=== PATIENT | male | born 1955 | race Caucasian/White ===

== ENCOUNTER 2016-04-20 12:52 | Inpatient (IN) ==
[2016-04-20] MEDS ORDERED: METOPROLOL TARTRATE 25 MG TABLET PO STA (13:15)
--- NOTE | 2016-04-20 13:21 | Emergency Department Note ---
Arrival - Arrival Chief Complaint: Neuro Stated Complaint: numbness, tingling to left face, arm, leg ED Nursing Triage Note: Patient arrived via ems with c/o of tingling to left arm , left leg, and left side of face. Patient symptoms started at 1130 today while sitting in chair. Patient reports this has never happened. Denies any chest pain or shortness of breath. Denies headache. PMH: htn, elevated cholesterol. Mode of Arrival: Stretcher Limitations: No Limitations Source: Patient Time Seen by Provider: 04/20/16 13:15 - History of Present Illness HPI Narrative: This 7-year-old white male presents with a history of approximately 2 hours ago onset of left facial numbness as well as left upper and left lower extremity numbness not associated with any motor weakness. The patient denies visual changes, headache, slurring of speech, nausea, or vomiting. Of note, he just started antihypertensive medication a week ago and continues with elevated blood pressure on presentation today. He denies any chest pain, palpitations, or shortness of breath associated with this. He does not have a prior history of any atherosclerotic related disease. Currently he appears in no acute distress. Onset (ago): hour(s) (this patient presents 2 hours post onset of symptoms) Consistency: constant Severity: mild Review of System - Review of System 12 point system: reviewed and no additional remarkable complaints except as stated - Review of System Constitutional: Present: as per HPI Respiratory: Present: as per HPI Cardiovascular: Present: as per HPI Gastrointestinal: Present: as per HPI Neurological: Present: as per HPI Medical,Surgical,& Family Hx - Medical History Cardio: History of: Hypertension Endocrine: History of: Dyslipidemia - Social History Smoking Status: Current every day smoker Frequency of Alcohol Use: None Type of Drug Use: None Exam Physical Examination: GENERAL: Well developed, well nourished white male in no acute distress. HEENT: Normocephalic. No trauma. Moist mucous membranes. EOMI. PERRLA. ENT clear NECK: Supple. No adenopathy. CARDIAC: Regular. No murmurs. Heart rate 90 CHEST: Clear to auscultation. No respiratory distress. O2 sat 94% ABDOMEN: Soft. Nontender. Active bowel sounds. EXTREMITIES: No trauma. Normal ROM. No pedal edema. SKIN: No diaphoresis. No rash. NEURO: Alert. Oriented 3. Motor, vibratory intact somewhat questionable decrement in sensation left extremities No focal deficits. Vital Signs: Vital Signs Temperature 98.0 F 04/20/16 12:53 Pulse Rate 95 H 04/20/16 13:26 Respiratory Rate 23 04/20/16 13:26 Blood Pressure 186/116 04/20/16 13:26 O2 Sat by Pulse Oximetry 94 L 04/20/16 13:26 Course - Reevaluation(s) Reevaluation #1: Discussed with patient the need for further evaluation given his persistent numbness and history of hypertension and hypercholesterolemia - Consultations Consultation #1: Discussed with hospitalist service who will admit for further evaluation and treatment. Results - Labs CBC & BMP: 04/20/16 13:34 04/20/16 13:34 Labs: I have reviewed the laboratory and noted the normal results. - Impressions EKG: Sinus rhythm with normal ME interval and QRS duration. Normal ST segments. Normal EKG. - Diagnostic Findings Procedure: Chest x-ray: image reviewed by me, report reviewed by me (evidence of COPD otherwise no significant findings), CT: image reviewed by me, report reviewed by me (head: No acute injury noted) Disposition Clinical Impression: TIA, hypertension, hyperlipidemia Case discussed with: patient, patient's family Disposition: Still a Patient Condition: Stable Time of Disposition: 14:31
[2016-04-20] MEDS ORDERED: METOPROLOL TARTRATE 25 MG TABLET ONE (13:30)
--- NOTE | 2016-04-20 13:39 | EKG Report ---
Stationary ECG Study [facility] ER Test Date: 04/20/2016 1:38:10 PM Pat Name: DARLENE MAC Department: Room: Gender: M Receptionist: : 1955 Requested by: Lee Csataneda Order Number: [id number] Reading MD: VERENICE BUSTAMANTE Intervals [place] Rate: 86 P: 64 ND: 186 QRS: 12 QRSD: 100 T: 76 QT: 362 QTc: 405 Interpretive Statements SINUS RHYTHM Electronically Signed On 04-22-16 20:01:25 SUPERVISOR CD ARE[employer] by VERENICE BUSTAMANTE [email or web address]
[2016-04-20 13:41] LABS: Basophils # 0.1 10*3/uL (0.0-0.2); Basophils % 0.6 % (0.0-0.8); Eosinophils # 0.1 10*3/uL (0.0-0.87); Eosinophils % 0.9 % (0.00-10.9); Hematocrit 46.1 VOL% (42.0-52.0); Hemoglobin 15.6 GM/DL (14.0-18.0); Immature Granulocytes % 0.3 %; Immature Granulocytes Absolute 0.03 #; Lymphocytes # 1.8 10*3/uL (1.4-4.0); Lymphocytes % 18.1 % (21.2-54.2); Mean Corpuscular HGB Conc 33.8 GM/DL (32-36); Mean Corpuscular Hemoglobin 30 PG (27-34); Mean Corpuscular Volume 88.3 FL (87-102); Monocytes # 1.4 10*3/uL (0.11-0.8); Monocytes % 13.9 % (1.7-12.7); Neutrophils # 6.5 10*3/uL (1.4-7.4); Neutrophils % 66.2 % (38.7-73.9); Platelet Count 363 T/CUMM (130-400); Red Blood Count 5.22 MC/CUMM (3.8-5.5); Red Cell Distribution Width 12.4 % (9.3-17.3); White Blood Count 9.8 T/CUMM (4-12)
[2016-04-20 13:45] LABS: Apearance,Urine CLEAR (Clear); Bilirubin,Urine Negative (Negative); Blood, Urine Negative (Negative); Glucose,Urine (UA) Negative (Negative); Ketones,Urine Negative (Negative); Mucus,Urine Occasional /LPF (Occasional); Nitrite,Urine Negative (Negative); Protein,Urine Negative; Urine Color Straw (Yellow); Urine Specific Gravity 1.003 (1.001-1.035); Urine Urobilinogen < 2.0 EU/DL (0.2-1.0); WBC,Urine <1 /HPF (0-6)
--- NOTE | 2016-04-20 13:51 | CT Report ---
CT brain Indication: Mental status changes Comparison: None available Technique: Axial CT imaging of the brain is performed without contrast with 3 mm increments. Findings: No evidence of hemorrhage, mass mass effect midline shift or acute infarct seen. The brain parenchyma attenuation and differentiation appears within normal limits. The ventricles and cisterns are normal in caliber. No cranial or skull base abnormality is identified. Impression: No evidence of abnormality demonstrated. PROCEDURE INTERPRETED AT [facility] DEPARTMENT OF RADIOLOGY Final Report Signed by: Dr. Maximilinao Sanchez
[2016-04-20 13:52] LABS: Barbiturates Screen,Urine Negative (Negative); Benzodiazepines Screen,Urine Negative (Negative); Cannabinoid Screen,Urine Negative (Negative); Opiate Screen,Urine Positive (Negative); Phencyclidine Screen,Urine Negative (Negative)
--- NOTE | 2016-04-20 13:58 | XRay Report ---
XR chest 2V Indication: Altered mental status Comparison: 22 August 2013 Findings: The heart and mediastinum are normal in size and configuration. The pulmonary vascularity is normal in caliber. Lung volumes are increased with prominent bronchial markings. No lung infiltrates, effusions, pneumothorax or other abnormality is demonstrated. Impression: Chronic lung changes. No acute process or significant change. PROCEDURE INTERPRETED AT [facility] [place] DEPARTMENT OF RADIOLOGY Final Report Signed by: Dr. Maximiliano Sanchez
[2016-04-20 14:01] LABS: PT Patient Result 10.7 SECS; Partial Thromboplastin Time 36.1 SECS (0-40)
[2016-04-20 14:07] LABS: Alanine Aminotransferase 19 U/L (16-61); Albumin 4.1 G/DL (3.4-5.0); Alkaline Phosphatase 114 U/L (45-117); Aspartate Amino Transferase 9 U/L (0-37); Blood Urea Nitrogen 14 MG/DL (7-18); Calcium 9.2 MG/DL (8.5-10.1); Free T4 (Free Thyroxine) 1.21 NG/DL (0.76-1.46); Glucose 99 MG/DL (74-106); Magnesium 2.5 MG/DL (1.8-2.4); Osmolality,Calculated 277.5 MOS/KG (273-304); Potassium 4.4 MMOL/L (3.5-5.1); Sodium 139 MMOL/L (136-145); Total Protein 7.4 G/DL (6.4-8.3); Troponin I Only < 0.015 NG/ML (0.00-0.045)
[2016-04-20] MEDS ORDERED: LABETALOL 20 MG/4 ML SYRINGE IV PRN (15:15)
--- NOTE | 2016-04-20 16:11 | Ultrasound Report ---
US carotid duplex BI Indication: Left-sided numbness. CAROTID ULTRASOUND Comparison: None. Findings: Grayscale, color Doppler and pulsed Doppler interrogation of the carotid and vertebral arteries performed. Severity of stenosis based on flow velocity measurements using NASCET criteria. Distal right ICA diameter: 5.9 mm Distal left ICA diameter: 5.3 mm Peak systolic flow velocities in centimeters per second are as follows: Right: CCA: 64 cm/s Proximal ICA: 52 Distal ICA: 81 ICA/CCA ratio: 1.3 Left: CCA: 76 cm/s Proximal ICA: 53 Distal ICA: 101 ICA/CCA ratio: 1.3 External carotid arteries: Both are patent with antegrade flow. Vertebral arteries: Both are patent with antegrade flow. Grayscale and color Doppler images: Very little focal plaque deposition identified, with normal color Doppler flow present. Pulse Doppler waveform interrogation: No significant spectral broadening. Impression: No hemodynamically significant stenosis of either ICA origin. PROCEDURE INTERPRETED AT [facility] DEPARTMENT OF RADIOLOGY Final Report Signed by: Alonso Olivas M.D.
--- NOTE | 2016-04-20 17:50 | Hospitalist History & Physical ---
Assessment and Plan (1) Acute CVA (cerebrovascular accident) Status: Acute Assessment and plan: 1)possible stroke- head CT looks ok. echo, carotids, MRI pending. Neuro consult pending. Symptoms resolving. PT and OT to see. Monitor BP. On aspirin a day- increase to 325/day, and may need to add plavix pending MRI results. 2)BPH- flomax 3)GERD- omeprazole 4)depression- welbutrinXL 5)restless leg syndrome- oxycodone, ambien. 6)COPD- on symbicort. Current Visit: Yes (2) HTN (hypertension) Status: Acute Current Visit: Yes (3) BPH (benign prostatic hyperplasia) Status: Acute Current Visit: Yes (4) CFS (chronic fatigue syndrome) Status: Acute Current Visit: Yes (5) Restless leg Status: Acute Current Visit: Yes (6) GERD (gastroesophageal reflux disease) Status: Acute Current Visit: Yes History of Present Illness Chief complaint: numb left side History of present illness: Mr. Edwards is a 61 year old male who started to have left mouth and arm numbness at 11:30 that spread to his leg. His leg has resolved, his arm is better but his mouth is still numb- he has bitten that side of his mouth several times chewing gum. He has never had anything like this happen to him before. He has not had loss of strength or coordination in these areas, though they feel like they have been "put to sleep with lidocaine". No recent illness, no fevers, N/V/D, no dysuria. no headache, no seizures. No pain. He is a retired RN. Home Medications Medication Instructions Recorded Confirmed Type Aspirin EC Tab 81 mg PO DAILY 04/20/16 04/20/16 History Atorvastatin [Lipitor] 20 mg PO DAILY 04/20/16 04/20/16 History Lisinopril 10 mg PO DAILY 04/20/16 04/20/16 History Omeprazole [Prilosec] 20 mg PO DAILY 04/20/16 04/20/16 History Oxycodone HCl 30 mg PO QID 04/20/16 04/20/16 History Tamsulosin [Flomax] 0.4 mg PO BID 04/20/16 04/20/16 History Zolpidem Tartrate [Ambien] 10 mg PO QPM 04/20/16 04/20/16 History buPROPion XL [Wellbutrin Xl] 300 mg PO DAILY 04/20/16 04/20/16 History Allergies Allergy/AdvReac Type Severity Reaction Status Date / Time levofloxacin [From Levaquin] Allergy Severe Chest Pain Verified 04/20/16 17:40 Medical,Surgical,& Family Hx - Medical History Cardio: History of: Hypertension Endocrine: History of: Dyslipidemia Respiratory: History of: COPD Genitourinary: History of: Prostate Problems Gastrointestinal: History of: GERD Other: History of: Miscellaneous Medical Problems (restless leg syndrome, chronic fatigue syndrome) - Surgical History Abdominal Surgeries: Surgical HX of: Appendectomy - Family History Family History: Reports;: Family Cancer (maternal and paternal frandfathers), Family Hypertension (dad) - Social History Smoking Status: Current every day smoker Have you smoked in the last 12 months: Yes (44 pack years, now 1/2ppd) Frequency of Alcohol Use: None Type of Drug Use: None Marital Status: Lives With:: Spouse Functional capacity: independent ambulation 12 point system: reviewed and no additional remarkable complaints except as stated Exam - Constitutional General appearance: normal weight, no acute distress - Head Head exam: Present: normocephalic, atraumatic - Eye Eye exam: Present: EOMI. Absent: conjunctival injection, periorbital swelling, scleral icterus Pupils: Present: YOBANI - ENT ENT exam: Present: normal oropharynx - Neck Neck exam: Present: normal inspection. Absent: lymphadenopathy - Respiratory Respiratory exam: Present: clear to auscultation bilaterally - Cardiovascular Cardiovascular exam: Present: regular rate and rhythm - GI/Abdominal GI/Abdominal exam: Present: normal bowel sounds, soft. Absent: tenderness - Extremities Exam Extremities exam: Absent: edema - Back Exam Back exam: Present: normal inspection - Neurological Exam Neurological exam: Present: alert, oriented X3, CN II-XII intact, motor sensory deficit (numb to touch in left arm and face. leg much less so. reflexes increased on left. ) - Psychiatric Psychiatric exam: Present: normal affect, normal mood - Skin Skin exam: Present: warm, dry Results - Labs CBC & BMP: 04/20/16 13:34 04/20/16 13:34 Lab Results: I have reviewed the past 24 hour labs Quality Measures - Stroke Onset of Symptoms Date: 04/20/16 Onset of Symptoms Time: 11:30 Symptom Onset Unknown: No
[2016-04-20] MEDS ORDERED: ENOXAPARIN 40 MG/0.4 ML SYRINGE SUBCUT SCH (18:00)
[2016-04-20 18:15] LABS: Cholesterol 174 MG/DL (50-200); HDL Cholesterol 68 MG/DL (40-60); Risk Ratio 2.56; Triglycerides 71 MG/DL (2-150); Troponin I Only < 0.015 NG/ML (0.00-0.045); VLDL CHOLESTEROL 14.2 MG/DL
[2016-04-20] MEDS ORDERED: ZALEPLON 5 MG CAPSULE PO SCH (19:00)
[2016-04-20] MEDS: SODIUM CHLORIDE 0.9% 1,000 ML IV SCH (19:06)
[2016-04-20] MEDS: oxyCODONE IR 5 MG TABLET PO SCH (20:13)
[2016-04-20] MEDS: TAMSULOSIN 0.4 MG CAPSULE PO SCH (20:13)
[2016-04-20] MEDS ORDERED: ROSUVASTATIN 20 MG TABLET PO SCH (21:00)
[2016-04-21 07:48] LABS: Basophils # 0.1 10*3/uL (0.0-0.2); Basophils % 0.5 % (0.0-0.8); Eosinophils # 0.1 10*3/uL (0.0-0.87); Eosinophils % 1.2 % (0.00-10.9); Hematocrit 42.1 VOL% (42.0-52.0); Hemoglobin 14.2 GM/DL (14.0-18.0); Immature Granulocytes % 0.6 %; Immature Granulocytes Absolute 0.06 #; Lymphocytes # 1.8 10*3/uL (1.4-4.0); Lymphocytes % 18.4 % (21.2-54.2); Mean Corpuscular HGB Conc 33.7 GM/DL (32-36); Mean Corpuscular Hemoglobin 30 PG (27-34); Mean Corpuscular Volume 89.6 FL (87-102); Mean Platelet Volume 9.2 FL (9.6-12.0); Monocytes # 1.2 10*3/uL (0.11-0.8); Monocytes % 12.3 % (1.7-12.7); Neutrophils # 6.6 10*3/uL (1.4-7.4); Platelet Count 355 T/CUMM (130-400); Red Cell Distribution Width 12.6 % (9.3-17.3); White Blood Count 9.8 T/CUMM (4-12)
--- NOTE | 2016-04-21 07:50 | ECHO Report ---
Patrice Edwards Exam Date: 04/20/2016 15:53 Referring Physician: Technologist: Niki Voss RDCS Age: 61 Ht (in): Wt (lb): Gender: M Exam Location: [facility] Echo BP: / HR: Rhythm: Sinus Technical Quality: IMPRESSIONS Normal left ventricular cavity size. Mild concentric left ventricular hypertrophy. Left ventricular ejection fraction is estimated at 50 %, borderline global hypokinesis. Grade 1 diastolic dysfunction. Mildly dilated right-sided heart chambers, with mild pulmonary hypertension. Mildly dilated left atrium. MEASUREMENTS (Male / Female) Normal Values FINDINGS Left Ventricle Normal left ventricular cavity size. Mild concentric left ventricular hypertrophy. Left ventricular ejection fraction is estimated at 50 %, borderline global hypokinesis. Grade 1 diastolic dysfunction. Right Ventricle The right ventricle is mildly dilated, with normal systolic function. Right Atrium The right atrium is mildly enlarged. Left Atrium Mildlly dilated left atrium. Mitral Valve Structurally normal mitral valve, with trace insufficiency. Aortic Valve Morphologically normal aortic valve without significant sclerosis or stenosis. There is no aortic regurgitation. Tricuspid Valve Morphologically normal tricuspid valve. Mild tricuspid valve regurgitation. Tricuspid regurgitation velocities suggest a PAP of 50 mmHg. Pulmonic Valve Morphologically normal pulmonic valve without significant stenosis. There is trace pulmonic regurgitation. Pericardium Normal pericardium without effusion. Aorta Normal ascending aorta dimension. Singh Schmitt (Electronically Signed) Final Date: 21 April 2016 07:49
[2016-04-21 08:19] LABS: Calcium 9.1 MG/DL (8.5-10.1); Osmolality,Calculated 280.3 MOS/KG (273-304); Potassium 4.4 MMOL/L (3.5-5.1)
[2016-04-21] MEDS ORDERED: LISINOPRIL 10 MG TABLET PO SCH (09:00)
[2016-04-21] MEDS ORDERED: ASPIRIN EC 81 MG TABLET PO SCH (09:00)
[2016-04-21] MEDS ORDERED: ASPIRIN EC 325 MG TABLET PO SCH (09:00)
[2016-04-21] MEDS ORDERED: ATORVASTATIN 20 MG TABLET PO SCH (09:00)
[2016-04-21] MEDS ORDERED: PANTOPRAZOLE 40 MG TABLET PO SCH (09:00)
[2016-04-21] MEDS: TAMSULOSIN 0.4 MG CAPSULE PO SCH (09:05)
[2016-04-21] MEDS: oxyCODONE IR 5 MG TABLET PO SCH ×2 (09:07→13:22)
--- NOTE | 2016-04-21 10:47 | Magnetic Resonance Report ---
MRI of the brain without contrast. Indication: Left-sided weakness. Axial diffusion, axial ADC, sagittal T1, axial T2, axial FLAIR, axial gradient echo, axial T1, coronal T2 no prior studies. The appearance of the craniovertebral junction is within normal limits. The pituitary gland is normal in size. The ventricles and sulci are normally prominent for the patient's age. There is no mass effect, midline shift, or area of hemorrhage. No cortical infarcts are seen at this time. There is a subcentimeter focus of abnormal increased T2, FLAIR, and diffusion signal within the right thalamus. Within the white matter of both cerebral hemispheres, there are scattered foci of increased T2 and FLAIR signal. The venous sinuses are patent. There is mild mucosal thickening within the ethmoid sinuses. Impression: 1. Small focus of abnormal signal consistent with an area of acute ischemia within the right thalamus. 2. Small scattered nonspecific foci in the white matter of both cerebral hemispheres which may be related to chronic microvascular ischemia, migraine headache syndrome, vasculitis, demyelinating processes, or post viral or post inflammatory entities. PROCEDURE INTERPRETED AT [facility] DEPARTMENT OF RADIOLOGY Final Report Signed by: Dr. Kelley Lee
[2016-04-21] MEDS: SODIUM CHLORIDE 0.9% 1,000 ML IV SCH (10:58)
[2016-04-21] MEDS ORDERED: CLOPIDOGREL 75 MG TABLET PO SCH (13:00)
--- NOTE | 2016-04-21 14:09 | Neurology Consult Note ---
History of Present Illness History of present illness: Mr. Edwards is a 61 year old right-handed white gentleman who started to have left mouth and arm numbness at 11:30 am that spread to his leg. His leg has resolved, his arm is better but his mouth is still numb- he has bitten that side of his mouth several times chewing gum. He has never had anything like this happen to him before. He has not had loss of strength or coordination in these areas, though they feel like they have been "put to sleep with lidocaine" . No recent illness, no fevers, N/V/D, no dysuria. no headache, no seizures. No pain. MRI of the brain revealed a small right thalamic acute infarct. Carotid Dopplers and echo is negative. Lipid profile is unremarkable. Patient does smokes a pack per day. And was also taking aspirin a day. Home Medications Medication Instructions Recorded Confirmed Type Aspirin EC Tab 81 mg PO DAILY 04/20/16 04/20/16 History Atorvastatin [Lipitor] 20 mg PO DAILY 04/20/16 04/20/16 History Lisinopril 10 mg PO DAILY 04/20/16 04/20/16 History Omeprazole [Prilosec] 20 mg PO DAILY 04/20/16 04/20/16 History Oxycodone HCl 30 mg PO QID PRN 04/20/16 04/20/16 History Tamsulosin [Flomax] 0.4 mg PO BID 04/20/16 04/20/16 History Zolpidem Tartrate [Ambien] 10 mg PO QPM 04/20/16 04/20/16 History buPROPion XL [Wellbutrin Xl] 300 mg PO DAILY 04/20/16 04/20/16 History Allergies Allergy/AdvReac Type Severity Reaction Status Date / Time levofloxacin [From Levaquin] Allergy Severe Chest Pain Verified 04/20/16 17:40 12 point system: reviewed and no additional remarkable complaints except as stated Medical,Surgical,& Family Hx - Medical History Cardio: History of: Hypertension Endocrine: History of: Dyslipidemia Respiratory: History of: COPD Genitourinary: History of: Prostate Problems Gastrointestinal: History of: GERD Other: History of: Miscellaneous Medical Problems (restless leg syndrome, chronic fatigue syndrome) - Surgical History Abdominal Surgeries: Surgical HX of: Appendectomy - Family History Family History: Reports;: Family Cancer (maternal and paternal frandfathers), Family Hypertension (dad) - Social History Smoking Status: Current every day smoker Frequency of Alcohol Use: None Type of Drug Use: None Exam - Constitutional Vitals: Period Temp Pulse Resp BP Sys/Cruz Pulse Ox Last 24 Hr 96.4 F-98.3 F 63-72 16-24 128-160/75-112 93-96 Exam: GENERAL: Patient is in no acute distress. NECK: Neck is supple. There is no JVD. No carotid bruits present. No thyroid masses. CVS: First and second heart sounds are normal. There is no S3 present. Regular rate and rhythm. RESPIRATORY: Lungs are clear to auscultation without any rales or rhonchi. ABDOMEN: Soft and non-tender. Bowel sounds are present. There is no hepatosplenomegaly. EXT: There is no palpable edema. Peripheral pulses are present. Skin: No rashes Central Nervous system: General: Alert, awake and Oriented x 3 Speech: Fluent Comprehension: Intact and normal Facial expressions: Normal Cranial Nerves: CN1/Olfactory: Normal CN II/ Optic: Normal, Visual Carlos unreliable CN III, and : YOBANI & EOMI CN V: Normal & intact CN VII: face is symmetric CNVIII: Normal CN XI/X/XI/XII: Intact and Normal Motor: Bulk and Tone is normal. Strength in the right 5/5 Strength in the left 5/5 Sensory: Decreased for all the modalities of PP, LT and temp sense in the left face Reflexes: 1+ and symmetrical Cerebellar function: Normal finger to nose and heel to padgett testing. Gait: Normal heel to heel and toe to toe and tandem walk. Results - Labs CBC & BMP: 04/21/16 07:02 04/21/16 07:02 Assessment and Plan (1) Acute CVA (cerebrovascular accident) Status: Acute Assessment and plan: Acute right thalamic CVA. Stop aspirin Agree with Plavix Counseled him regarding cessation of smoking Change lisinopril to 20 mg daily Okay to go home from neuro standpoint Follow-up in 4 weeks Current Visit: Yes Specialty Discharge - Follow Up or Referrals Follow up with: Epifanio Lizarraga MD [Physician] - 1 Month
[2016-04-21] MEDS ORDERED: LISINOPRIL 20 MG TABLET PO SCH (14:12)
--- NOTE | 2016-04-21 14:55 | Discharge Summary ---
Hospital Course - Hospital Course Hospital Course: Mr Edwards presented with left side face, arm and leg numbness. He has acute right thalamic stroke on MRI. He was already on aspirin and Plavix was added. He was counselled to stop smoking. His carotids had less than 50% stenosis and his echo had normal LV function. He was seen by Dr Lizarraga also. His numbness has improved except for some residual in his face at this point. He will be discharged on increased lisinopril, plavix, otherwise meds the same. He is already on an effective statin. Follow up with PCP in [address] Lizarraga in 1 month. - Time spent with patient Time with patient DS: Greater than 30 minutes (exam, medicine reconciliation, documentation, discharge planning) Diagnosis - Discharge Diagnosis (1) Acute CVA (cerebrovascular accident) Status: Acute (2) HTN (hypertension) Status: Chronic (3) BPH (benign prostatic hyperplasia) Status: Chronic (4) CFS (chronic fatigue syndrome) Status: Chronic (5) Restless leg Status: Chronic (6) GERD (gastroesophageal reflux disease) Status: Chronic (7) Hypercholesteremia Status: Acute (8) Smoker Status: Acute Specialty Discharge - Follow Up or Referrals Follow up with: Epifanio Lizarraga MD [Physician] - 1 Month your, PCP [Other] (1 week) Discharge Plan - Discharge Data Disposition: Disch To Home/Self Care Condition at Discharge: Stable Discharge Diet: heart healthy, low fat, low cholesterol Activity: resume usual activities as tolerated - Discharge Medications New Clopidogrel [Plavix] 75 mg PO DAILY #30 tablet Lisinopril [Prinivil] 20 mg PO DAILY #30 tablet Continue Oxycodone HCl 30 mg PO QID PRN PRN Reason: Pain Omeprazole [Prilosec] 20 mg PO DAILY Tamsulosin [Flomax] 0.4 mg PO BID buPROPion XL [Wellbutrin Xl] 300 mg PO DAILY Zolpidem Tartrate [Ambien] 10 mg PO QPM Atorvastatin [Lipitor] 20 mg PO DAILY Discontinued Aspirin EC Tab 81 mg PO DAILY Lisinopril 10 mg PO DAILY - Follow Up or Referral Follow Up: Epifanio Lizarraga MD [Physician] - 1 Month - Forms/Instructions Instructions: Transient Ischemic Attack (GEN), Ischemic Stroke (GEN) Exam - Constitutional Vitals: Period Temp Pulse Resp BP Sys/Cruz Pulse Ox Last 24 Hr 96.4 F-98.3 F 63-72 16-24 128-160/75-112 93-96 General appearance: normal weight, no acute distress - Eye Eye exam: Present: EOMI. Absent: scleral icterus - Respiratory Respiratory exam: Present: clear to auscultation bilaterally - Cardiovascular Cardiovascular exam: Present: regular rate and rhythm - GI/Abdominal GI/Abdominal exam: Present: normal bowel sounds, soft. Absent: tenderness - Extremities Exam Extremities exam: Absent: edema - Neurological Exam Neurological exam: Present: alert, oriented X3, CN II-XII intact, reflexes normal, other (strength equal throughout, sensation returned to left arm and leg. some numbness in left face.) - Skin Skin exam: Present: warm, dry Discharge Results Labs on day of discharge: Labs from last 24 hours 04/21/16 04/21/16 04/20/16 07:02 07:02 23:52 WBC 9.8 RBC 4.70 Hgb 14.2 Hct 42.1 MCV 89.6 MCH 30 MCHC 33.7 RDW 12.6 Plt Count 355 MPV 9.2 L Neut % (Auto) 67.0 Lymph % (Auto) 18.4 L [place] % (Auto) 12.3 Eos % (Auto) 1.2 Baso % (Auto) 0.5 Neut # (Auto) 6.6 Lymph # (Auto) 1.8 [place] # (Auto) 1.2 H Eos # (Auto) 0.1 Baso # (Auto) 0.1 Immature Gran % 0.6 Nucleated RBC % 0.0 Immature Gran # 0.06 Nucleated RBCs # 0.00 Sodium 141 Potassium 4.4 Chloride 106 Carbon Dioxide 26 Anion Gap 13.4 BUN 13 Creatinine 0.80 GFR Calculation 120 BUN/Creatinine Ratio 16.00 Glucose 91 Calculated Osmolality 280.3 Calcium 9.1 Troponin I < 0.015 Triglycerides Cholesterol LDL Cholesterol VLDL Cholesterol HDL Cholesterol Heart Disease Risk Ratio 04/20/16 04/20/16 20:05 17:29 WBC RBC Hgb Hct MCV MCH MCHC RDW Plt Count MPV Neut % (Auto) Lymph % (Auto) [place] % (Auto) Eos % (Auto) Baso % (Auto) Neut # (Auto) Lymph # (Auto) [place] # (Auto) Eos # (Auto) Baso # (Auto) Immature Gran % Nucleated RBC % Immature Gran # Nucleated RBCs # Sodium Potassium Chloride Carbon Dioxide Anion Gap BUN Creatinine GFR Calculation BUN/Creatinine Ratio Glucose Calculated Osmolality Calcium Troponin I < 0.015 < 0.015 Triglycerides 71 Cholesterol 174 LDL Cholesterol 101.0 VLDL Cholesterol 14.2 HDL Cholesterol 68 H Heart Disease Risk Ratio 2.56 DS: Provider Date of admission: 04/20/16 14:44 Primary care physician: . No PCP Attending physician on admission: Chyna Bansal MD Consults: 04/20/16 15:16 Consult to Case Mgmt/Social Srvs [CONS] Routine Reason for Case Mgmt/Social Srvs: Discharge Planning Consult to Occupational Therapy [CONS] Routine Reason for Occupational Therapy: Evaluate and Treat Consult Comment: Stroke Consult to Physical Therapy [CONS] Routine Reason for Physical Therapy: Evaluate and Treat Consult Comment: stroke 04/20/16 15:19 Consult to Physician [CONS] Routine Comment: Consulting Provider: Epifanio Lizarraga Consult to Specialist Group: Neurology Person Notified: robert Date Notified: 04/21/16 Time Notified: 09:40 04/20/16 16:09 Consult to Pharmacy [CONS] Routine Reason for Pharmacy Consult: Adjust Meds Renal Funct Discharging clinician: Chyna Bansal MD
[2016-04-21 16:24] VITALS: BP 128/89
== END 2016-04-21 16:25 | disposition home or self-care (01) | DRG 66 ==
LOC: EDBD → EDUNIT# → N.ED 12:52 → N.EDINP 14:44 → N.5E 15:59
PROVIDERS: ADMIT Internal Medicine; ATTEND Internal Medicine